=== PATIENT | male | born 1975 | race Caucasian/White ===

== ENCOUNTER 2017-11-01 15:23 | Emergency (ER) | payer OTHER ==
--- NOTE | 2017-11-01 16:11 | EDM.PDOC ---
ED HPI GENERAL MEDICAL PROBLEM - General Chief Complaint: Respiratory Problem Stated Complaint: COUGH, FEVER Time Seen by Provider: 11/01/17 16:10 Source of Information: Reports: Patient - History of Present Illness INITIAL COMMENTS - FREE TEXT/NARRATIVE: HISTORY AND PHYSICAL: History of present illness: [Patient complains of cough and intermittent fever some myalgias no nausea vomiting chills sweats no chest pain shortness breath headache dizziness palpitation about a urine symptoms symptoms increasing over last 3 days ] Review of systems: As per history of present illness and below otherwise all systems reviewed and negative. Past medical history: As per history of present illness and as reviewed below otherwise noncontributory. Surgical history: As per history of present illness and as reviewed below otherwise noncontributory. Social history: No reported history of drug or alcohol abuse. Family history: As per history of present illness and as reviewed below otherwise noncontributory. Physical exam: HEENT: Atraumatic, normocephalic, pupils reactive, negative for conjunctival pallor or scleral icterus, mucous membranes moist, throat clear, neck supple, nontender, trachea midline. Lungs: Clear to auscultation, breath sounds equal bilaterally, chest nontender. Heart: S1S2, regular, negative for clicks, rubs, or JVD. Abdomen: Soft, nondistended, nontender. Negative for masses or hepatosplenomegaly. Negative for costovertebral tenderness. Pelvis: Stable nontender. Genitourinary: Deferred. Rectal: Deferred. Extremities: Atraumatic, negative for cords or calf pain. Neurovascular unremarkable. Neuro: Awake, alert, oriented. Cranial nerves II through XII unremarkable. Cerebellum unremarkable. Motor and sensory unremarkable throughout. Exam nonfocal. Diagnostics: []Influenza Chest 2 views Therapeutics: [Z-Anish HFA Phenergan with codeine ] Impression: [Acute bronchitis Slight infiltrate on chest x-ray will follow radiology] Definitive disposition and diagnosis as appropriate pending reevaluation and review of above. generalized body aches Pain Score (Numeric/FACES): 4 - Related Data Allergies Allergy/AdvReac Type Severity Reaction Status Date / Time No Known Allergies Allergy Verified 11/01/17 15:32 Home Meds: Home Meds . [No Known Home Meds] 11/01/17 [History] Past Medical History - Past Health History Medical/Surgical History: Denies Medical/Surgical History - Infectious Disease History Infectious Disease History: Reports: Chicken Pox Social & Family History - Family History Family Medical History: Noncontributory - Tobacco Use Smoking Status *Q: Never Smoker Second Hand Smoke Exposure: No - Caffeine Use Caffeine Use: Reports: Coffee, Tea - Alcohol Use Days Per Week of Alcohol Use: 4 Number of Drinks Per Day: 2 Total Drinks Per Week: 8 - Recreational Drug Use Recreational Drug Use: No ED ROS GENERAL - Review of Systems Review Of Systems: ROS reveals no pertinent complaints other than HPI. ED EXAM, GENERAL - Physical Exam Exam: See Below Course - Vital Signs Last Recorded V/S: Last Vital Signs Temp 98.5 F 11/01/17 15:28 Pulse 103 H 11/01/17 15:28 Resp 18 11/01/17 15:28 BP 174/118 H 11/01/17 15:28 Pulse Ox 95 11/01/17 15:28 - Orders/Labs/Meds Orders: Active Orders 24 hr Category Date Time Status Chest 2V [CR] Stat Exams 11/01/17 15:33 Taken Departure - Departure Time of Disposition: 16:47 Disposition: Home, Self-Care 01 Condition: Good Clinical Impression: Acute bronchitis - Discharge Information Referrals: PCP,None [Primary Care Provider] - Forms: ED Department Discharge Additional Instructions: Medication as prescribed Return if symptoms persist or worsen Follow-up with primary care in 2 weeks sooner as needed The following information is given to patients seen in the emergency department who are being discharged to home. This information is to outline your options for follow-up care. We provide all patients seen in our emergency department with a follow-up referral. The need for follow-up, as well as the timing and circumstances, are variable depending upon the specifics of your emergency department visit. If you don't have a primary care physician on staff, we will provide you with a referral. We always advise you to contact your personal physician following an emergency department visit to inform them of the circumstance of the visit and for follow-up with them and/or the need for any referrals to a consulting specialist. The emergency department will also refer you to a specialist when appropriate. This referral assures that you have the opportunity for follow-up care with a specialist. All of these measure are taken in an effort to provide you with optimal care, which includes your follow-up. Under all circumstances we always encourage you to contact your private physician who remains a resource for coordinating your care. When calling for follow-up care, please make the office aware that this follow-up is from your recent emergency room visit. If for any reason you are refused follow-up, please contact the [facility] emergency department at and asked to speak to the emergency department charge nurse. - My Orders Last 24 Hours: My Active Orders 11/01/17 15:33 Chest 2V [CR] Stat - Assessment/Plan Last 24 Hours: My Active Orders 11/01/17 15:33 Chest 2V [CR] Stat
--- NOTE | 2017-11-03 17:59 | CR ---
EXAM DATE: 11/01/17 PATIENT'S AGE: 42 Patient: MUNIRA AUSTIN Facility: [place], [place] Site . Site : 1975 Study: XRay Chest [id number]/20/2018 4:33:39 PM Ordering Physician: Senait Jensen Final Report: INDICATION: Cough for 2 days, negative influenza TECHNIQUE: Chest radiograph 2 views COMPARISON: None FINDINGS: Mediastinum: The heart silhouette is normal in size and morphology. The mediastinum is normal in appearance. Mild elevation of the right hemidiaphragm noted. Lungs: Both lungs are unremarkable in appearance. No sign of pleural effusion seen. No pneumothorax is identified. Bones and soft tissue: Unremarkable for age. IMPRESSION: 1. No acute cardiopulmonary disease is seen. Dictated by: Anival Hoskins MD @ 11/01/2017 16:34:39 (Electronic Signature) Report Signed by Proxy. AMBER
== END 2017-11-01 16:59 | disposition home or self-care (01) ==
LOC: MW.ED 15:23
DX: J20.9 Acute bronchitis, unspecified (principal)
CPT/HCPCS: 71046; 71046-26; 87804; 99283

== ENCOUNTER 2021-08-09 08:13 | Inpatient (IN) | payer BC, OTHER ==
[2021-08-09] MEDS ORDERED: Sodium Chloride 0.9% 10 ML Syringe FLUSH PRN (09:48)
[2021-08-09] MEDS ORDERED: Sodium Chloride 0.9% 2.5 ML Syringe FLUSH PRN (09:48)
[2021-08-09] MEDS ORDERED: Sodium Chloride 0.9% 1,000 ML IV ONE ×2 (09:51→11:29)
--- NOTE | 2021-08-09 09:58 | EDM.PDOC ---
<Teresa Acuna E - Last Filed: 08/09/21 12:12> ED HPI GENERAL MEDICAL PROBLEM - General Chief Complaint: Cardiovascular Problem Stated Complaint: HEART RATE ISSUES Time Seen by Provider: 08/09/21 09:42 Source of Information: Reports: Patient History Limitations: Reports: No Limitations - History of Present Illness INITIAL COMMENTS - FREE TEXT/NARRATIVE: HISTORY AND PHYSICAL: History of present illness: Patient is a 45-year-old male who presents to the emergency room stating his pulse has been elevated since 7 AM this morning. He has noticed palpitations and shortness of breath. He denies having any chest pain although states his chest "feels tight". His watch informed him his heart rate was 160s. He states he does have a history of high blood pressure although hasn't wanted to be placed on medication. He has been doing weight watchers, has recently lost 30 pounds in attempt to manage his blood pressure without medication. Hasn't checked his blood pressure in months. Patient denies any fever, chills, headache, change in vision, syncope or near syncope. Denies any back pain or cough. Denies any abdominal pain, nausea, vomiting, diarrhea, constipation or dysuria. Has not noted any blood in urine or stool. Patient has been eating and drinking appropriately. No recent travel or sick contacts. Review of systems: As per history of present illness and below otherwise all systems reviewed and negative. Past medical history: As per history of present illness and as reviewed below otherwise noncontributory. Surgical history: As per history of present illness and as reviewed below otherwise noncontributory. Social history: See social history for further information Family history: As per history of present illness and as reviewed below otherwise noncontributory. Physical exam: General: Well developed and well nourished 45 year old male. Alert and orientated x 3. Nontoxic in appearance and in no acute distress. Vital signs are stable and have been reviewed by me. Nursing notes were reviewed. HEENT: Atraumatic, normocephalic, pupils equal and reactive bilaterally, negative for conjunctival pallor or scleral icterus, mucous membranes moist, TMs normal bilaterally, throat clear, neck supple, nontender, trachea midline. No drooling or trismus noted. No meningeal signs. No hot potato voice noted. Lungs: Clear to auscultation bilaterally. No wheezes, rales, or rhonchi. Chest nontender. Normal work of breathing, no accessory muscles used. Heart: Tachycardic with a rate of 150s. No peripheral edema Abdomen: Soft, nondistended, nontender. Normoactive bowel sounds. Negative for masses or costovertebral tenderness. Skin: Intact, warm, dry. No lesions or rashes noted. Hematologic: No petechiae or purpra. Mucosa appropriate color and normal nail bed color and refill. Extremities: Atraumatic, moves all extremities per self without difficulty or deficits, negative for cords or calf pain. Neurovascular unremarkable. Neuro: Awake, alert, oriented. Cranial nerves II through XII unremarkable. Cerebellum unremarkable. Motor and sensory unremarkable throughout. Exam nonfocal. Psychiatric: Mood and affect are appropriate. Normal thought process. Answering questions appropriately. Please note that the patient was seen and evaluated during the 2019 SARS-CoV-2 novel coronavirus pandemic period. Community viral transmission is ongoing at time of this encounter and the emergency department is operating under pandemic response procedures. Medical Decision Making: Patient is a 45-year-old male who presents to the emergency room with his with concerns of tachycardia, palpitation and chest tightness since 0700 today. He went to bed feeling fine, asymptomatic. He states he has noticed symptoms like this in the past, but typically last a few minutes and resolves on its own. Has never seen a provider for this. He states he has had high blood pressure in the past, but wanted to try to loose some weight before taking any medications. Doesn't know what his blood pressure has been running, hasn't checked in a few months. Physical exam is unremarkable with the exception of tachycardia with rate of 140-160's, irregular. Will do cardiac workup with the likely intent of admission. EKG shows Afib with RVR, rate of 166. Symptomatic. [id number] Score: 1 point (untreated HTN). Lab work is essentially unremarkable. Chest x-ray is unremarkable. Patient has received diltiazem IV and orally with a rate staying at 1 teens to 130s. We will give a second dose of diltiazem and continue to monitor. Dr Milelr was directly involved in this case. I have talked with the patient about today's findings, in addition to providing specific details for plan of care. Reassessment at the time of disposition demonstrates that the patient is in no acute distress. Dr Hutchins was consulted on this case and is agreeable to keeping patient for further care. Patient will be admitted to the ICU for rate management, diltiazem drip. Patient continues to have a heart rate of 105-125. He offers no current complaints or concerns and his blood pressure is within normal limits. Diagnostics: CBC, CMP, Troponin, EKG, CXR, COVID, TSH Therapeutics: IV fluids, Zofran, Diltiazem x 2, Diltiazem drip, Cardizem CD Impression: New onset A.Fib with RVR Plan: ICU admission Definitive disposition and diagnosis as appropriate pending reevaluation and review of above. - Related Data Allergies Allergy/AdvReac Type Severity Reaction Status Date / Time No Known Allergies Allergy Verified 08/09/21 15:33 Home Meds: Home Meds . [No Known Home Meds] 11/01/17 [History] Past Medical History - Past Health History Medical/Surgical History: Denies Medical/Surgical History - Infectious Disease History Infectious Disease History: Reports: Chicken Pox Social & Family History - Family History Family Medical History: No Pertinent Family History - Caffeine Use Caffeine Use: Reports: Coffee, Tea ED ROS GENERAL - Review of Systems Review Of Systems: Comprehensive ROS is negative, except as noted in HPI. ED EXAM, GENERAL - Physical Exam Exam: See Below (See dictation) Departure - Departure Time of Disposition: 12:13 Disposition: Admitted As Inpatient 65 Clinical Impression: Atrial fibrillation with RVR Sepsis Event Note (ED) - Evaluation Sepsis Screening Result: No Definite Risk <Justin Miller - Last Filed: 08/10/21 13:50> ED ROS GENERAL - Review of Systems Review Of Systems: Comprehensive ROS is negative, except as noted in HPI. Course - Vital Signs Text/Narrative:: 12:09 Angela Wilhelm help comanage this patient. Patient came in with A. fib RVR. Tubules doses of IV diltiazem and 120 of Cardizem long-acting. Patient still with heart rates in the 130s intermittently. Dilt drip started. Otherwise admission ICU dill drip continued management and work-up Last Recorded V/S: Last Vital Signs Temp 36.7 C 08/10/21 13:00 Pulse 139 H 08/09/21 14:25 Resp 19 08/10/21 13:00 BP 126/88 08/10/21 13:00 Pulse Ox 94 L 08/10/21 13:00 - Orders/Labs/Meds Orders: Medication Orders Enoxaparin Sodium (Enoxaparin 40 Mg/0.4 Ml Syringe) 40 mg SUBCUT Q24H [facility] Last Admin: 08/09/21 15:44 Dose: 40 mg Documented by: SLAVA Lactated Ringer's (Ringers, Lactated) 1,000 mls @ 125 mls/hr IV Q8H BING Last Admin: 08/10/21 08:47 Dose: 125 mls/hr Documented by: Infusion: 08/10/21 08:47 Dose: 125 mls/hr Documented by: Admin: 08/10/21 00:47 Dose: 125 mls/hr Documented by: Infusion: 08/10/21 00:47 Dose: 125 mls/hr Documented by: Admin: 08/09/21 17:15 Dose: 125 mls/hr Documented by: SLAVA Pantoprazole Sodium 40 mg/ (Sodium Chloride) 10 mls @ 300 mls/hr IV DAILY BING Last Admin: 08/10/21 09:34 Dose: 300 mls/hr Documented by: SANJIV Diltiazem HCl 100 mg/ Sodium (Chloride) 100 mls @ 5 mls/hr IV NOW [facility]; Protocol Last Admin: 08/10/21 04:52 Dose: 5 mg/hr, 5 mls/hr Documented by: JARRELL Ondansetron HCl (Ondansetron 4 Mg/2 Ml Sdv) 4 mg IVPUSH Q4H PRN PRN Reason: Nausea/Vomiting Last Admin: 08/09/21 17:32 Dose: 4 mg Documented by: SLAVA Sodium Chloride (Sodium Chloride 0.9% 10 Ml Syringe) 10 ml FLUSH ASDIRECTED PRN PRN Reason: Keep Vein Open Last Admin: 08/09/21 10:25 Dose: 10 ml Documented by: BIRGIT Sodium Chloride (Sodium Chloride 0.9% 2.5 Ml Syringe) 2.5 ml FLUSH ASDIRECTED PRN PRN Reason: Keep Vein Open Last Admin: 08/09/21 10:25 Dose: 2.5 ml Documented by: BIRGIT Labs: Laboratory Tests 1008/09/21 08/09/21 Range/Units 10:00 10:00 10:30 WBC 6.93 (4.0-11.0) K/uL RBC 5.30 (4.50-5.90) M/uL Hgb 17.3 H (13.0-17.0) g/dL Hct 48.0 (38.0-50.0) % MCV 90.6 (80.0-98.0) fL MCH 32.6 H (27.0-32.0) pg MCHC 36.0 (31.0-37.0) g/dL RDW Std Deviation 42.7 (28.0-62.0) fl RDW Coeff of Kevin 13 (11.0-15.0) % Plt Count 173 (150-400) K/uL MPV 9.50 (7.40-12.00) fL Neut % (Auto) 69.0 (48.0-80.0) % Lymph % (Auto) 20.1 (16.0-40.0) % [place] % (Auto) 9.1 (0.0-15.0) % Eos % (Auto) 1.4 (0.0-7.0) % Baso % (Auto) 0.4 (0.0-1.5) % Neut # (Auto) 4.8 (1.4-5.7) K/uL Lymph # (Auto) 1.4 (0.6-2.4) K/uL [place] # (Auto) 0.6 (0.0-0.8) K/uL Eos # (Auto) 0.1 (0.0-0.7) K/uL Baso # (Auto) 0.0 (0.0-0.1) K/uL Nucleated RBC % 0.0 /100WBC Nucleated RBCs # 0 K/uL Sodium 138 (136-148) mmol/L Potassium 4.2 (3.5-5.1) mmol/L Chloride 100 (98-107) mmol/L Carbon Dioxide 27.4 (21.0-32.0) mmol/L BUN 11 (7.0-18.0) mg/dL Creatinine 1.0 (0.8-1.3) mg/dL Est Cr Clr Drug Dosing 107.32 mL/min Estimated GFR (MDRD) > 60.0 ml/min Glucose 133 H (74-106) mg/dL Calcium 9.6 (8.5-10.1) mg/dL Total Bilirubin 0.5 (0.2-1.0) mg/dL AST 37 (15-37) IU/L ALT 87 H (14-63) IU/L Alkaline Phosphatase 62 (46-116) U/L Troponin I < 0.050 (0.000-0.056) ng/mL Total Protein 8.0 (6.4-8.2) g/dL Albumin 4.0 (3.4-5.0) g/dL Globulin 4.0 (2.6-4.0) g/dL Albumin/Globulin Ratio 1.0 (0.9-1.6) TSH, Ultra Sensitive 1.45 (0.36-3.74) uIU/mL SARS-CoV-2 RNA (LEXIS) NEGATIVE (NEGATIVE) Meds: Medications Generic Name Dose Route Start Last Admin Trade Name Freq PRN Reason Stop Dose Admin Enoxaparin Sodium 40 mg 08/09/21 15:30 08/09/21 15:44 Enoxaparin 40 Mg/0.4 Ml Syringe SUBCUT 40 mg Q24H BING Administration Lactated Ringer's 1,000 mls @ 125 mls/hr 08/09/21 16:30 08/10/21 08:47 Ringers, Lactated IV 125 mls/hr Q8H BING Administration Pantoprazole Sodium 40 mg/ 10 mls @ 300 mls/hr 08/10/21 09:00 08/10/21 09:34 Sodium Chloride IV 300 mls/hr DAILY BING Administration Diltiazem HCl 100 mg/ Sodium 100 mls @ 5 mls/hr 08/09/21 20:00 08/10/21 04:52 Chloride IV 5 mg/hr NOW BING 5 mls/hr Administration Protocol 5 MG/HR Ondansetron HCl 4 mg 08/09/21 15:30 08/09/21 17:32 Ondansetron 4 Mg/2 Ml Sdv IVPUSH 4 mg Q4H PRN Administration Nausea/Vomiting Sodium Chloride 10 ml 08/09/21 09:48 08/09/21 10:25 Sodium Chloride 0.9% 10 Ml Syringe FLUSH 10 ml ASDIRECTED PRN Administration Keep Vein Open Sodium Chloride 2.5 ml 08/09/21 09:48 08/09/21 10:25 Sodium Chloride 0.9% 2.5 Ml Syringe FLUSH 2.5 ml ASDIRECTED PRN Administration Keep Vein Open Discontinued Medications Generic Name Dose Route Start Last Admin Trade Name Freq PRN Reason Stop Dose Admin Aspirin 324 mg 08/09/21 09:59 08/09/21 10:12 Aspirin 81 Mg Tab.Chew PO 08/09/21 10:00 324 mg ONETIME ONE Administration Diltiazem HCl 10 mg 08/09/21 10:11 08/09/21 10:21 Diltiazem 25 Mg/5 Ml Sdv IVPUSH 08/09/21 10:12 10 mg ONETIME ONE Administration Diltiazem HCl 120 mg 08/09/21 11:15 08/09/21 12:04 Diltiazem 120 Mg Cap.Cd PO 08/09/21 11:16 Not Given ONETIME ONE Diltiazem HCl 10 mg 08/09/21 11:29 08/09/21 11:46 Diltiazem 25 Mg/5 Ml Sdv IVPUSH 08/09/21 11:30 10 mg ONETIME ONE Administration Sodium Chloride 1,000 mls @ 999 mls/hr 08/09/21 09:51 08/09/21 10:11 Normal Saline IV 08/09/21 10:51 999 mls/hr STAT ONE Administration Sodium Chloride 1,000 mls @ 125 mls/hr 08/09/21 11:29 08/09/21 11:46 Normal Saline IV 08/09/21 19:28 125 mls/hr STAT ONE Administration Diltiazem HCl 100 mg/ Sodium 100 mls @ 3 mls/hr 08/09/21 12:15 08/10/21 04:52 Chloride IV 0 mg/hr NOW BING 0 mls/hr Titration Protocol 3 MG/HR Lactated Ringer's 1,000 mls @ 999 mls/hr 08/09/21 15:30 08/09/21 16:00 Ringers, Lactated IV 08/09/21 16:30 999 mls/hr BOLUS ONE Administration Ondansetron HCl 4 mg 08/09/21 11:07 08/09/21 11:10 Ondansetron 4 Mg/2 Ml Sdv IVPUSH 08/09/21 11:08 4 mg ONETIME ONE Administration
[2021-08-09] MEDS ORDERED: Aspirin 81 MG Tab.Chew PO ONE (09:59)
[2021-08-09] MEDS ORDERED: Diltiazem 25 MG/5 ML SDV IVPUSH ONE ×2 (10:11→11:29)
--- NOTE | 2021-08-09 10:20 | PCM.EKG ---
#1 Interpretation Time: 10:20 EKG Interpretation Comments: 166, A. fib with RVR, nonspecific ST/T findings
[2021-08-09] MEDS ORDERED: Diltiazem 120 MG Cap.CD PO ONE ×2 (10:32→11:15)
[2021-08-09 10:52] LABS: BLOOD UREA NITROGEN,BUN 11 mg/dL (7.0-18.0); CARBON DIOXIDE,CO2 27.4 mmol/L (21.0-32.0); CHLORIDE,CL 100 mmol/L (98-107); GLUCOSE RANDOM 133 mg/dL (74-106); POTASSIUM,K 4.2 mmol/L (3.5-5.1); SODIUM,NA 138 mmol/L (136-148)
[2021-08-09] MEDS ORDERED: Ondansetron 4 MG/2 ML SDV IVPUSH ONE (11:07)
--- NOTE | 2021-08-09 11:27 | CR ---
INDICATION: SOB TECHNIQUE: Chest 1 view. COMPARISON: 11/01/17 FINDINGS: Cardiovascular and mediastinum: Heart size and vasculature are normal in caliber and appearance. Mediastinum is within normal limits. Lungs and pleural space: Lungs are clear. No sign of infiltrate or mass. No sign of pleural effusion. No pneumothorax. Bones and soft tissues: No significant findings. IMPRESSION: Unremarkable chest. Dictated by: Emory Wolfe MD @ 08/09/2021 11:26:08 (Electronically Signed)
[2021-08-09] MEDS ORDERED: Diltiazem 100 MG in Sodium Chloride 0.9% 100 ML IV SCH ×2 (12:15→20:00)
[2021-08-09] MEDS ORDERED: Ondansetron 4 MG/2 ML SDV IVPUSH PRN (15:30)
[2021-08-09] MEDS ORDERED: Lactated Ringers 1,000 ML IV ONE (15:30)
[2021-08-09] MEDS: Enoxaparin 40 MG/0.4 ML Syringe SUBCUT SCH (15:44)
[2021-08-09] MEDS: Lactated Ringers 1,000 ML IV SCH (17:15)
--- NOTE | 2021-08-09 21:21 | PCM.HP.2 ---
<Red Looney - Last Filed: 08/09/21 22:23> H&P History of Present Illness - General Date of Service: 08/09/21 Admit Problem/Dx: Admission Diagnosis/Problem Admission Diagnosis/Problem Atrial fibrillation - History of Present Illness Initial Comments - Free Text/Narative: 45-year-old male with history of untreated hypertension presented to the ER complaining of elevated pulse since waking up this morning at 7 AM. Patient has had palpitations and associated shortness of breath but denies chest pain. Patient smart watch is giving him a pulse reading of 160s. Patient denies similar episodes in the past. Prior to this he was asymptomatic. Patient does have a family history of atrial fibrillation and multiple relatives. Patient is aware he has hypertension but has refused to be started on treatment. Patient has been dieting and lost 30 pounds recently with a goal of improving his blood pressure. Patient does not monitor BP. Patient states he did have some chest tightness upon awakening which is since resolved. Patient denies chest pain, radiation, difficulty breathing, shortness of breath, lightheadedness, dizziness, loss of consciousness, changes in vision, fever or chills. No abdominal pain, nausea, vomiting or diarrhea. Patient is a daily alcohol user. ER course: Patient presented with tachycardia, no acute distress. Heart rate 140s to 160s. EKG shows atrial fibrillation with RVR, rate of 166. [id number] VASc Score: 1 point (untreated HTN). Physical exam unremarkable. WBC 6.93. Hgb 17.3. Platelet count 173. Sodium 138. Potassium 4.2. Chloride 100. Bicarbonate 27.4. BUN 11. Creatinine 1.0. Glucose 133. Troponin negative x2. TSH 1.45. SARS-CoV-2 negative. Chest x-ray is unremarkable. Patient has received diltiazem IV and orally with a rate staying at 110 to 130s. Patient admitted to ICU diltiazem drip. Heart rate 100-125. Patient will be admitted to the ICU for rate management, diltiazem drip. CODE STATUS: Full code. - Related Data Allergies/Adverse Reactions: Allergies Allergy/AdvReac Type Severity Reaction Status Date / Time No Known Allergies Allergy Verified 08/09/21 15:33 Home Medications: Home Meds Apixaban [Eliquis] 5 mg PO BID #60 tablet 08/11/21 [Rx] Metoprolol Succinate 100 mg PO DAILY #30 tab.er.24h 08/11/21 [Rx] Past Medical History - Past Health History Medical/Surgical History: Denies Medical/Surgical History HEENT History: Reports: None Cardiovascular History: Reports: Hypertension Respiratory History: Reports: None Gastrointestinal History: Reports: None Genitourinary History: Reports: None Musculoskeletal History: Reports: None Neurological History: Reports: None Psychiatric History: Reports: None Endocrine/Metabolic History: Reports: None Hematologic History: Reports: None Immunologic History: Reports: None Oncologic (Cancer) History: Reports: None Dermatologic History: Reports: None - Infectious Disease History Infectious Disease History: Reports: Chicken Pox - Past Surgical History Head Surgeries/Procedures: Reports: None HEENT Surgical History: Reports: None Cardiovascular Surgical History: Reports: None Respiratory Surgical History: Reports: None GI Surgical History: Reports: None Male Surgical History: Reports: None Endocrine Surgical History: Reports: None Neurological Surgical History: Reports: None Musculoskeletal Surgical History: Reports: None Oncologic Surgical History: Reports: None Dermatological Surgical History: Reports: None Social & Family History - Family History Family Medical History: No Pertinent Family History - Tobacco Use Tobacco Use Status *Q: Never Tobacco User Second Hand Smoke Exposure: No - Caffeine Use Caffeine Use: Reports: Coffee - Alcohol Use Days Per Week of Alcohol Use: 7 Number of Drinks Per Day: 1 Total Drinks Per Week: 7 Date of Last Drink: 08/08/21 - Recreational Drug Use Recreational Drug Use: No H&P Review of Systems - Review of Systems: Review Of Systems: See Below General: Reports: Weight Loss. Denies: Fever, Chills HEENT: Denies: Headaches, Hearing Changes, Vertigo, Visual Changes Pulmonary: Reports: Shortness of Breath. Denies: Wheezing, Sputum, Hemoptysis Cardiovascular: Reports: Palpitations, Blood Pressure Problem. Denies: Chest Pain, Dyspnea on Exertion, Edema, Lightheadedness, Syncope Gastrointestinal: Denies: Abdominal Pain, Anorexia, Black Stool, Constipation, Diarrhea, Nausea, Vomiting Genitourinary: Denies: Dysuria Musculoskeletal: Denies: Neck Pain, Shoulder Pain, Arm Pain, Back Pain, Hand Pain, Leg Pain Skin: Denies: Cyanosis, Pallor, Diaphoresis Psychiatric: Denies: Confusion Neurological: Denies: Confusion, Dizziness, Headache, Numbness, Paresthesia, Seizure, Syncope, Tingling, Difficulty Walking, Weakness, Change in Speech Exam - Exam Exam: See Below - Vital Signs Vital Signs: Last Vital Signs Temp 97.7 F 08/09/21 20:00 Pulse 139 H 08/09/21 14:25 Resp 17 08/09/21 21:00 BP 128/87 08/09/21 21:00 Pulse Ox 97 08/09/21 21:00 Weight: 121.761 kg - Exam General: Alert, Oriented, 4 HEENT: Conjunctiva Clear, EACs Clear, EOMI, Hearing Intact Neck: Supple, Trachea Midline, 2 Lungs: Clear to Auscultation, Normal Respiratory Effort Cardiovascular: Irregular Rhythm, Tachycardia GI/Abdominal Exam: Normal Bowel Sounds, Soft, Non-Tender, No Distention, No Abnormal Bruit Back Exam: Normal Inspection, Full Range of Motion, NT Extremities: Normal Inspection, Normal Range of Motion, Non-Tender, No Pedal Edema, Normal Capillary Refill Peripheral Pulses: 2+: Dorsalis Pedis (L), Dorsalis Pedis (R) Skin: Warm, Dry, Intact Neurological: Cranial Nerves Intact Neuro Extensive - Mental Status: Alert, Oriented x3, Normal Mood/Affect, Normal Cognition Neuro Extensive - Motor, Sensory, Reflexes: CN II-XII Intact, Normal Gait, Normal Reflexes Psychiatric: Alert, Normal Affect, Normal Mood - Patient Data Lab Results Last 24 hrs: Laboratory Results - last 24 hr 08/09/21 08/09/21 08/09/21 Range/Units 10:00 10:00 10:30 WBC 6.93 (4.0-11.0) K/uL RBC 5.30 (4.50-5.90) M/uL Hgb 17.3 H (13.0-17.0) g/dL Hct 48.0 (38.0-50.0) % MCV 90.6 (80.0-98.0) fL MCH 32.6 H (27.0-32.0) pg MCHC 36.0 (31.0-37.0) g/dL RDW Std Deviation 42.7 (28.0-62.0) fl RDW Coeff of Kevin 13 (11.0-15.0) % Plt Count 173 (150-400) K/uL MPV 9.50 (7.40-12.00) fL Neut % (Auto) 69.0 (48.0-80.0) % Lymph % (Auto) 20.1 (16.0-40.0) % [place] % (Auto) 9.1 (0.0-15.0) % Eos % (Auto) 1.4 (0.0-7.0) % Baso % (Auto) 0.4 (0.0-1.5) % Neut # (Auto) 4.8 (1.4-5.7) K/uL Lymph # (Auto) 1.4 (0.6-2.4) K/uL [place] # (Auto) 0.6 (0.0-0.8) K/uL Eos # (Auto) 0.1 (0.0-0.7) K/uL Baso # (Auto) 0.0 (0.0-0.1) K/uL Nucleated RBC % 0.0 /100WBC Nucleated RBCs # 0 K/uL Sodium 138 (136-148) mmol/L Potassium 4.2 (3.5-5.1) mmol/L Chloride 100 (98-107) mmol/L Carbon Dioxide 27.4 (21.0-32.0) mmol/L BUN 11 (7.0-18.0) mg/dL Creatinine 1.0 (0.8-1.3) mg/dL Est Cr Clr Drug Dosing 107.32 mL/min Estimated GFR (MDRD) > 60.0 ml/min Glucose 133 H (74-106) mg/dL Calcium 9.6 (8.5-10.1) mg/dL Total Bilirubin 0.5 (0.2-1.0) mg/dL AST 37 (15-37) IU/L ALT 87 H (14-63) IU/L Alkaline Phosphatase 62 (46-116) U/L Troponin I < 0.050 (0.000-0.056) ng/mL Total Protein 8.0 (6.4-8.2) g/dL Albumin 4.0 (3.4-5.0) g/dL Globulin 4.0 (2.6-4.0) g/dL Albumin/Globulin Ratio 1.0 (0.9-1.6) TSH, Ultra Sensitive 1.45 (0.36-3.74) uIU/mL SARS-CoV-2 RNA ([facility]) NEGATIVE (NEGATIVE) 08/09/21 Range/Units 16:02 WBC (4.0-11.0) K/uL RBC (4.50-5.90) M/uL Hgb (13.0-17.0) g/dL Hct (38.0-50.0) % MCV (80.0-98.0) fL MCH (27.0-32.0) pg MCHC (31.0-37.0) g/dL RDW Std Deviation (28.0-62.0) fl RDW Coeff of Kevin (11.0-15.0) % Plt Count (150-400) K/uL MPV (7.40-12.00) fL Neut % (Auto) (48.0-80.0) % Lymph % (Auto) (16.0-40.0) % [place] % (Auto) (0.0-15.0) % Eos % (Auto) (0.0-7.0) % Baso % (Auto) (0.0-1.5) % Neut # (Auto) (1.4-5.7) K/uL Lymph # (Auto) (0.6-2.4) K/uL [place] # (Auto) (0.0-0.8) K/uL Eos # (Auto) (0.0-0.7) K/uL Baso # (Auto) (0.0-0.1) K/uL Nucleated RBC % /100WBC Nucleated RBCs # K/uL Sodium (136-148) mmol/L Potassium (3.5-5.1) mmol/L Chloride (98-107) mmol/L Carbon Dioxide (21.0-32.0) mmol/L BUN (7.0-18.0) mg/dL Creatinine (0.8-1.3) mg/dL Est Cr Clr Drug Dosing mL/min Estimated GFR (MDRD) ml/min Glucose (74-106) mg/dL Calcium (8.5-10.1) mg/dL Total Bilirubin (0.2-1.0) mg/dL AST (15-37) IU/L ALT (14-63) IU/L Alkaline Phosphatase (46-116) U/L Troponin I < 0.050 (0.000-0.056) ng/mL Total Protein (6.4-8.2) g/dL Albumin (3.4-5.0) g/dL Globulin (2.6-4.0) g/dL Albumin/Globulin Ratio (0.9-1.6) TSH, Ultra Sensitive (0.36-3.74) uIU/mL SARS-CoV-2 RNA ([facility]) (NEGATIVE) Result Diagrams: 08/09/21 10:00 08/09/21 10:00 Sepsis Event Note - Evaluation Sepsis Screening Result: No Definite Risk - Focused Exam Vital Signs: Vital Signs Temp Temp Pulse Pulse Resp BP BP 08/09/21 21:00 17 128/87 08/09/21 20:00 97.7 F 16 135/90 08/09/21 19:00 16 129/92 H 08/09/21 18:00 19 134/95 H 08/09/21 17:00 17 138/84 08/09/21 16:00 17 119/82 08/09/21 15:27 08/09/21 15:00 97.2 F 24 H 132/96 H 08/09/21 14:25 139 H 132/78 08/09/21 13:36 115 H 116/74 08/09/21 13:00 111 H 122/84 08/09/21 12:24 117 H 111/87 08/09/21 11:51 105 H 16 114/89 08/09/21 11:35 124 H 16 130/98 H 08/09/21 11:09 135 H 130/99 H 08/09/21 10:57 98.1 F 126 H 16 139/104 H 08/09/21 10:26 152 H 17 142/88 H 08/09/21 09:53 97.6 F 151 H 19 143/113 H Pulse Ox Pulse Ox 08/09/21 21:00 97 08/09/21 20:00 96 08/09/21 19:00 95 08/09/21 18:00 96 08/09/21 17:00 95 08/09/21 16:00 96 08/09/21 15:27 96 08/09/21 15:00 97 08/09/21 14:25 08/09/21 13:36 99 08/09/21 13:00 99 08/09/21 12:24 98 08/09/21 11:51 98 08/09/21 11:35 98 08/09/21 11:09 08/09/21 10:57 98 08/09/21 10:26 96 08/09/21 09:53 98 - Problem List (1) Atrial fibrillation with RVR SNOMED Code(s): 863824506932308 ICD Code: I48.91 - UNSPECIFIED ATRIAL FIBRILLATION Status: Acute Problem List Initiated/Reviewed/Updated: Yes Orders Last 24hrs: Active Orders 24 hr Category Date Time Status Admission Status [Patient Status] [ADT] Stat ADT 08/09/21 12:08 Active Patient Status [ADT] Routine ADT 08/09/21 14:45 Active Ambulate [RC] ASDIRECTED Care 08/09/21 15:27 Active Antiembolic Devices [RC] PER UNIT ROUTINE Care 08/09/21 15:28 Active Oxygen Therapy [RC] PRN Care 08/09/21 15:27 Active VTE/DVT Education [RC] PER UNIT ROUTINE Care 08/09/21 15:27 Active Vital Signs [RC] Q1H Care 08/09/21 15:27 Active Heart Healthy Diet [DIET] Diet 08/09/21 Dinner Active Echo Comp wo Cont [US] Routine Exams 08/09/21 15:38 Ordered BMP [BASIC METABOLIC PANEL,BMP] [CHEM] AM Lab 08/10/21 05:11 Ordered CBC WITH AUTO DIFF [HEME] AM Lab 08/10/21 05:11 Ordered MAGNESIUM [CHEM] AM Lab 08/10/21 05:11 Ordered PHOSPHORUS [CHEM] AM Lab 08/10/21 05:11 Ordered Diltiazem [Cardizem] 100 mg Med 08/09/21 12:15 Active Sodium Chloride 0.9% [Normal Saline AdvBag] 100 ml IV NOW Enoxaparin [Lovenox] Med 08/09/21 15:30 Active 40 mg SUBCUT Q24H Lactated Ringers [Ringers, Lactated] 1,000 ml Med 08/09/21 16:30 Active IV Q8H Ondansetron [Zofran] Med 08/09/21 15:30 Active 4 mg IVPUSH Q4H PRN Pantoprazole [ProTONIX IV] 40 mg Med 08/10/21 09:00 Active Sodium Chloride 0.9% [Normal Saline] 10 ml IV DAILY Sodium Chloride 0.9% [Saline Flush] Med 08/09/21 09:48 Active 10 ml FLUSH ASDIRECTED PRN Sodium Chloride 0.9% [Saline Flush] Med 08/09/21 09:48 Active 2.5 ml FLUSH ASDIRECTED PRN Saline Lock Insert [OM.PC] Stat Oth 08/09/21 09:48 Ordered Sequential Compression Device [OM.PC] Per Unit Routine Oth 08/09/21 15:27 Ordered Resuscitation Status Routine Resus Stat 08/09/21 15:27 Ordered Medication Orders Enoxaparin Sodium (Enoxaparin 40 Mg/0.4 Ml Syringe) 40 mg SUBCUT Q24H BING Last Admin: 08/09/21 15:44 Dose: 40 mg Documented by: SLAVA Diltiazem HCl 100 mg/ Sodium (Chloride) 100 mls @ 3 mls/hr IV NOW BING; Protocol Last Titration: 08/09/21 17:38 Dose: 5 mg/hr, 5 mls/hr Documented by: Titration: 08/09/21 15:28 Dose: 10 mg/hr, 10 mls/hr Documented by: Titration: 08/09/21 13:40 Dose: 6 mg/hr, 6 mls/hr Documented by: Admin: 08/09/21 12:27 Dose: 3 mg/hr, 3 mls/hr Documented by: BIRGIT Lactated Ringer's (Ringers, Lactated) 1,000 mls @ 125 mls/hr IV Q8H BING Last Admin: 08/09/21 17:15 Dose: 125 mls/hr Documented by: SLAVA Pantoprazole Sodium 40 mg/ (Sodium Chloride) 10 mls @ 300 mls/hr IV DAILY BING Ondansetron HCl (Ondansetron 4 Mg/2 Ml Sdv) 4 mg IVPUSH Q4H PRN PRN Reason: Nausea/Vomiting Last Admin: 08/09/21 17:32 Dose: 4 mg Documented by: SLAVA Sodium Chloride (Sodium Chloride 0.9% 10 Ml Syringe) 10 ml FLUSH ASDIRECTED PRN PRN Reason: Keep Vein Open Last Admin: 08/09/21 10:25 Dose: 10 ml Documented by: BIRGIT Sodium Chloride (Sodium Chloride 0.9% 2.5 Ml Syringe) 2.5 ml FLUSH ASDIRECTED PRN PRN Reason: Keep Vein Open Last Admin: 08/09/21 10:25 Dose: 2.5 ml Documented by: BIRGIT Assessment/Plan Comment:: New onset atrial fibrillation with RVR: -Admit to ICU, diltiazem drip. -We will transition patient to Cardizem IR followed by ER. Goal HR in the 70s. -Echocardiogram. -Lovenox. Protonix. Zofran. -Lactated Ringer's at 125 mL/h. -Follow-up TSH, lipids, hemoglobin A1c <Kota Hutchins - Last Filed: 08/14/21 16:41> H&P History of Present Illness - General Admit Problem/Dx: Admission Diagnosis/Problem Admission Diagnosis/Problem Atrial fibrillation Exam - Vital Signs Vital Signs: Last Vital Signs Temp 36.2 C 08/11/21 04:00 Pulse 74 08/10/21 20:23 Resp 12 08/11/21 07:00 BP 139/86 08/11/21 07:00 Pulse Ox 94 L 08/11/21 07:00 - Patient Data Result Diagrams: 08/10/21 04:52 08/10/21 04:52 Assessment/Plan Comment:: I performed a history and physical exam of the patient and discussed management with resident. I have reviewed the residents note and agree with documented findings and plan unless otherwise specified in my note.
[2021-08-10] MEDS: Lactated Ringers 1,000 ML IV SCH ×3 (00:47→17:07)
[2021-08-10 06:43] LABS: BLOOD UREA NITROGEN,BUN 8 mg/dL (7.0-18.0); CARBON DIOXIDE,CO2 26.5 mmol/L (21.0-32.0); CHLORIDE,CL 104 mmol/L (98-107); GLUCOSE RANDOM 111 mg/dL (74-106); SODIUM,NA 142 mmol/L (136-148)
[2021-08-10] MEDS ORDERED: Pantoprazole 40 MG in Sodium Chloride 0.9% 10 ML IV SCH (09:00)
[2021-08-10] MEDS ORDERED: Pantoprazole 40 MG Vial IV SCH (09:00)
[2021-08-10] MEDS: Enoxaparin 40 MG/0.4 ML Syringe SUBCUT SCH (16:47)
--- NOTE | 2021-08-10 19:06 | PCM.PN ---
- General Info Date of Service: 08/10/21 - Review of Systems Systems Review Comment:: denies any chest pain or palpitations - Patient Data Vitals - Most Recent: Last Vital Signs Temp 36.7 C 08/10/21 18:00 Pulse 139 H 08/09/21 14:25 Resp 18 08/10/21 18:47 BP 125/89 08/10/21 18:47 Pulse Ox 94 L 08/10/21 18:47 Weight - Most Recent: 120.596 kg I&O - Last 24 Hours: Intake & Output 08/10/21 08/10/21 08/10/21 06:59 14:59 22:59 Intake Total 750 344 8940 Output Total 1450 3500 Balance -850 400 20 Lab Results Last 24 Hours: Laboratory Results - last 24 hr 08/10/21 08/10/21 Range/Units 04:52 04:52 WBC 7.64 (4.0-11.0) K/uL RBC 5.22 (4.50-5.90) M/uL Hgb 17.1 H (13.0-17.0) g/dL Hct 48.3 (38.0-50.0) % MCV 92.5 (80.0-98.0) fL MCH 32.8 H (27.0-32.0) pg MCHC 35.4 (31.0-37.0) g/dL RDW Std Deviation 45.0 (28.0-62.0) fl RDW Coeff of Kevin 13 (11.0-15.0) % Plt Count 191 (150-400) K/uL MPV 10.20 (7.40-12.00) fL Neut % (Auto) 62.5 (48.0-80.0) % Lymph % (Auto) 25.7 (16.0-40.0) % [place] % (Auto) 8.8 (0.0-15.0) % Eos % (Auto) 2.5 (0.0-7.0) % Baso % (Auto) 0.5 (0.0-1.5) % Neut # (Auto) 4.8 (1.4-5.7) K/uL Lymph # (Auto) 2.0 (0.6-2.4) K/uL [place] # (Auto) 0.7 (0.0-0.8) K/uL Eos # (Auto) 0.2 (0.0-0.7) K/uL Baso # (Auto) 0.0 (0.0-0.1) K/uL Nucleated RBC % 0.0 /100WBC Nucleated RBCs # 0 K/uL Sodium 142 (136-148) mmol/L Potassium 4.0 (3.5-5.1) mmol/L Chloride 104 (98-107) mmol/L Carbon Dioxide 26.5 (21.0-32.0) mmol/L BUN 8 (7.0-18.0) mg/dL Creatinine 1.0 (0.8-1.3) mg/dL Est Cr Clr Drug Dosing 107.36 mL/min Estimated GFR (MDRD) > 60.0 ml/min Glucose 111 H (74-106) mg/dL Calcium 8.5 (8.5-10.1) mg/dL Phosphorus 3.3 (2.6-4.7) mg/dL Magnesium 1.8 (1.8-2.4) mg/dL Med Orders - Current: Current Medications Aspirin (Aspirin 81 Mg Tab.Chew) 81 mg PO BEDTIME BING Enoxaparin Sodium (Enoxaparin 40 Mg/0.4 Ml Syringe) 40 mg SUBCUT Q24H [facility] Last Admin: 08/10/21 16:47 Dose: 40 mg Documented by: Lactated Ringer's (Ringers, Lactated) 1,000 mls @ 125 mls/hr IV Q8H [facility] Last Admin: 08/10/21 17:07 Dose: 125 mls/hr Documented by: Pantoprazole Sodium 40 mg/ (Sodium Chloride) 10 mls @ 300 mls/hr IV DAILY [facility] Last Admin: 08/10/21 09:34 Dose: 300 mls/hr Documented by: Diltiazem HCl 100 mg/ Sodium (Chloride) 100 mls @ 5 mls/hr IV NOW [facility]; Protocol Last Admin: 08/10/21 04:52 Dose: 5 mg/hr, 5 mls/hr Documented by: Metoprolol Tartrate (Metoprolol Tartrate 50 Mg Tab) 50 mg PO Q12H BING Ondansetron HCl (Ondansetron 4 Mg/2 Ml Sdv) 4 mg IVPUSH Q4H PRN PRN Reason: Nausea/Vomiting Last Admin: 08/09/21 17:32 Dose: 4 mg Documented by: Sodium Chloride (Sodium Chloride 0.9% 10 Ml Syringe) 10 ml FLUSH ASDIRECTED PRN PRN Reason: Keep Vein Open Last Admin: 08/09/21 10:25 Dose: 10 ml Documented by: Sodium Chloride (Sodium Chloride 0.9% 2.5 Ml Syringe) 2.5 ml FLUSH ASDIRECTED PRN PRN Reason: Keep Vein Open Last Admin: 08/09/21 10:25 Dose: 2.5 ml Documented by: Discontinued Medications Aspirin (Aspirin 81 Mg Tab.Chew) 324 mg PO ONETIME ONE Stop: 08/09/21 10:00 Last Admin: 08/09/21 10:12 Dose: 324 mg Documented by: Diltiazem HCl (Diltiazem 25 Mg/5 Ml Sdv) 10 mg IVPUSH ONETIME ONE Stop: 08/09/21 10:12 Last Admin: 08/09/21 10:21 Dose: 10 mg Documented by: Diltiazem HCl (Diltiazem 120 Mg Cap.Cd) 120 mg PO ONETIME ONE Stop: 08/09/21 11:16 Last Admin: 08/09/21 12:04 Dose: Not Given Documented by: Diltiazem HCl (Diltiazem 25 Mg/5 Ml Sdv) 10 mg IVPUSH ONETIME ONE Stop: 08/09/21 11:30 Last Admin: 08/09/21 11:46 Dose: 10 mg Documented by: Sodium Chloride (Normal Saline) 1,000 mls @ 999 mls/hr IV STAT ONE Stop: 08/09/21 10:51 Last Admin: 08/09/21 10:11 Dose: 999 mls/hr Documented by: Sodium Chloride (Normal Saline) 1,000 mls @ 125 mls/hr IV STAT ONE Stop: 08/09/21 19:28 Last Admin: 08/09/21 11:46 Dose: 125 mls/hr Documented by: Diltiazem HCl 100 mg/ Sodium (Chloride) 100 mls @ 3 mls/hr IV NOW BING; Protocol Last Titration: 08/10/21 04:52 Dose: 0 mg/hr, 0 mls/hr Documented by: Lactated Ringer's (Ringers, Lactated) 1,000 mls @ 999 mls/hr IV BOLUS ONE Stop: 08/09/21 16:30 Last Admin: 08/09/21 16:00 Dose: 999 mls/hr Documented by: Ondansetron HCl (Ondansetron 4 Mg/2 Ml Sdv) 4 mg IVPUSH ONETIME ONE Stop: 08/09/21 11:08 Last Admin: 08/09/21 11:10 Dose: 4 mg Documented by: - Exam General: Alert, Oriented Lungs: Clear to Auscultation, Normal Respiratory Effort Cardiovascular: Regular Rate, Regular Rhythm GI/Abdominal Exam: Soft, Non-Tender, No Distention Extremities: Non-Tender, No Pedal Edema Skin: Warm, Dry, Intact Neurological: No New Focal Deficit - Patient Data Lab Results Last 24 hrs: Laboratory Results - last 24 hr 08/10/21 08/10/21 Range/Units 04:52 04:52 WBC 7.64 (4.0-11.0) K/uL RBC 5.22 (4.50-5.90) M/uL Hgb 17.1 H (13.0-17.0) g/dL Hct 48.3 (38.0-50.0) % MCV 92.5 (80.0-98.0) fL MCH 32.8 H (27.0-32.0) pg MCHC 35.4 (31.0-37.0) g/dL RDW Std Deviation 45.0 (28.0-62.0) fl RDW Coeff of Kevin 13 (11.0-15.0) % Plt Count 191 (150-400) K/uL MPV 10.20 (7.40-12.00) fL Neut % (Auto) 62.5 (48.0-80.0) % Lymph % (Auto) 25.7 (16.0-40.0) % [place] % (Auto) 8.8 (0.0-15.0) % Eos % (Auto) 2.5 (0.0-7.0) % Baso % (Auto) 0.5 (0.0-1.5) % Neut # (Auto) 4.8 (1.4-5.7) K/uL Lymph # (Auto) 2.0 (0.6-2.4) K/uL [place] # (Auto) 0.7 (0.0-0.8) K/uL Eos # (Auto) 0.2 (0.0-0.7) K/uL Baso # (Auto) 0.0 (0.0-0.1) K/uL Nucleated RBC % 0.0 /100WBC Nucleated RBCs # 0 K/uL Sodium 142 (136-148) mmol/L Potassium 4.0 (3.5-5.1) mmol/L Chloride 104 (98-107) mmol/L Carbon Dioxide 26.5 (21.0-32.0) mmol/L BUN 8 (7.0-18.0) mg/dL Creatinine 1.0 (0.8-1.3) mg/dL Est Cr Clr Drug Dosing 107.36 mL/min Estimated GFR (MDRD) > 60.0 ml/min Glucose 111 H (74-106) mg/dL Calcium 8.5 (8.5-10.1) mg/dL Phosphorus 3.3 (2.6-4.7) mg/dL Magnesium 1.8 (1.8-2.4) mg/dL Result Diagrams: 08/10/21 04:52 08/10/21 04:52 Sepsis Event Note - Evaluation Sepsis Screening Result: No Definite Risk - Focused Exam Vital Signs: Vital Signs Temp Temp Resp BP Pulse Ox Pulse Ox 08/10/21 18:47 18 125/89 94 L 08/10/21 18:00 36.7 C 16 130/84 96 08/10/21 16:53 36.7 C 17 122/91 H 93 L 08/10/21 16:00 36.7 C 17 117/74 93 L 08/10/21 15:27 96 08/10/21 15:00 36.7 C 12 128/92 H 95 08/10/21 14:00 36.7 C 14 117/83 93 L 08/10/21 13:00 36.7 C 19 126/88 94 L 08/10/21 12:00 36.7 C 17 131/89 95 08/10/21 11:00 14 126/84 94 L 08/10/21 10:00 17 121/86 95 08/10/21 09:00 36.3 C 13 129/90 94 L 08/10/21 08:00 36.3 C 15 135/94 H 96 - Problem List & Annotations (1) Atrial fibrillation with RVR SNOMED Code(s): 638294526192373 Code(s): I48.91 - UNSPECIFIED ATRIAL FIBRILLATION Status: Acute Current Visit: Yes - Problem List Review Problem List Initiated/Reviewed/Updated: Yes - My Orders Last 24 Hours: My Active Orders 08/10/21 19:15 Metoprolol Tartrate [Lopressor] 50 mg PO Q12H 08/10/21 21:00 Aspirin 81 mg PO BEDTIME - Plan Plan:: New onset atrial fibrillation with RVR: -will place on oral metoprolol and wean off diltiazem drip. Discussed stroke risk. CHADVASc score is 1 and he has elected to start aspirin.
[2021-08-10] MEDS ORDERED: Metoprolol Tartrate 50 MG Tab PO SCH (21:00)
[2021-08-10] MEDS ORDERED: Aspirin 81 MG Tab.Chew PO SCH (21:00)
[2021-08-11] MEDS: Lactated Ringers 1,000 ML IV SCH (02:04)
--- NOTE | 2021-08-11 07:33 | PCM.DCSUM1 ---
Discharge Summary - Discharge Data Discharge Date: 08/11/21 Discharge Disposition: Home, Self-Care 01 Condition: Good - Referral to Home Health Primary Care Physician: PCP None - Discharge Diagnosis/Problem(s) (1) Atrial fibrillation with RVR SNOMED Code(s): 257171715207498 ICD Code: I48.91 - UNSPECIFIED ATRIAL FIBRILLATION Status: Acute Current Visit: Yes - Patient Summary/Data Hospital Course: 45-year-old male with history of untreated hypertension who was admitted for new onset atrial fibrillation with rapid ventricular rate. He presented with palpitations. He was noted to be in atrial fibrillatio with heart rate in the 140s-160s. ER course: Patient presented with tachycardia, no acute distress. Heart rate 140s to 160s. EKG shows atrial fibrillation with RVR, rate of 166. [id number] Score: 1 point (untreated HTN). Physical exam unremarkable. WBC 6.93. Hgb 17.3. Platelet count 173. Sodium 138. Potassium 4.2. Chloride 100. Bicarbonate 27.4. BUN 11. Creatinine 1.0. Glucose 133. Troponin negative x2. TSH 1.45. SARS-CoV-2 negative. Chest x-ray is unremarkable. He was treated with IV diltiazem push follow by diltiazem drip. He was started on oral metorpolol and titrated off the diltazem dirp. This monring he is rate controlled in normal sinus rhythm but does on occasion switch to atrial fibrillation which remains rate controlled. He is requesting discharge home. AFter discussing risk I initially recommended aspirin but patient prefers stronger stroke prevention and wants to start anticoagulation. He was discharged on Metoprolol 100mg daily and Eliquis. He is to follow up with his primary care provider regarding results of echocardiogram. - Patient Instructions Diet: Regular Diet as Tolerated Activity: As Tolerated Other/Special Instructions: You were admitted for atrial fibrillation that cause a fast heart rate. We treated you with rate controlling medicaitons. Your atrial fibrillation is paradoxical meaning you alternate between a normal and abnormal rythym. When at home you should take metoprolol succinate to control your heart rate when it goes into atrial fibrillation. Metoprolol can cause low blood pressure, dizziness, and fatigue. You also will have a prescription for Eliquis to prevent strokes that can occurer due to atrial fibrillaiton. Eilquis can increase your risk of bleeding. Please follow up with your primary care provider in the next two weeks to ensure you are tolerating the new medicaitons and atiral fibrillation remains well controlled. You should also follow up to get results of the echocardiogram and consider cardiology consultation. Please check your heart rate and blood pressure daily and bring your readings to your next doctor appointment. - Discharge Plan Prescriptions/Med Rec: Apixaban [Eliquis] 5 mg PO BID #60 tablet Metoprolol Succinate 100 mg PO DAILY #30 tab.er.24h Home Medications: Home Meds Apixaban [Eliquis] 5 mg PO BID #60 tablet 08/11/21 [Rx] Metoprolol Succinate 100 mg PO DAILY #30 tab.er.24h 08/11/21 [Rx] Patient Handouts: Hypertension, Adult, [id number], Managing Your Hypertension, Atrial Fibrillation, [id number] Referrals: PCP,None [Primary Care Provider] - - Discharge Summary/Plan Comment DC Time >30 min.: No Total # of Minutes for Discharge Time: 20 - Patient Data Vitals - Most Recent: Last Vital Signs Temp 36.2 C 08/11/21 04:00 Pulse 74 08/10/21 20:23 Resp 15 08/11/21 06:00 BP 127/82 08/11/21 06:00 Pulse Ox 95 08/11/21 06:00 Weight - Most Recent: 121.123 kg I&O - Last 24 hours: Intake & Output 08/10/21 08/11/21 08/11/21 22:59 06:59 14:59 Intake Total 3520 350 Output Total 3500 1450 Balance 20 -1100 Lab Results - Last 24 hrs: Laboratory Results - last 24 hr 08/10/21 Range/Units 04:52 WBC 7.64 (4.0-11.0) K/uL RBC 5.22 (4.50-5.90) M/uL Hgb 17.1 H (13.0-17.0) g/dL Hct 48.3 (38.0-50.0) % MCV 92.5 (80.0-98.0) fL MCH 32.8 H (27.0-32.0) pg MCHC 35.4 (31.0-37.0) g/dL RDW Std Deviation 45.0 (28.0-62.0) fl RDW Coeff of Kevin 13 (11.0-15.0) % Plt Count 191 (150-400) K/uL MPV 10.20 (7.40-12.00) fL Neut % (Auto) 62.5 (48.0-80.0) % Lymph % (Auto) 25.7 (16.0-40.0) % Pickett % (Auto) 8.8 (0.0-15.0) % Eos % (Auto) 2.5 (0.0-7.0) % Baso % (Auto) 0.5 (0.0-1.5) % Neut # (Auto) 4.8 (1.4-5.7) K/uL Lymph # (Auto) 2.0 (0.6-2.4) K/uL Pickett # (Auto) 0.7 (0.0-0.8) K/uL Eos # (Auto) 0.2 (0.0-0.7) K/uL Baso # (Auto) 0.0 (0.0-0.1) K/uL Nucleated RBC % 0.0 /100WBC Nucleated RBCs # 0 K/uL Med Orders - Current: Current Medications Aspirin (Aspirin 81 Mg Tab.Chew) 81 mg PO BEDTIME [facility] Last Admin: 08/10/21 20:23 Dose: 81 mg Documented by: Enoxaparin Sodium (Enoxaparin 40 Mg/0.4 Ml Syringe) 40 mg SUBCUT Q24H [facility] Last Admin: 08/10/21 16:47 Dose: 40 mg Documented by: Lactated Ringer's (Ringers, Lactated) 1,000 mls @ 125 mls/hr IV Q8H [facility] Last Admin: 08/11/21 02:04 Dose: Not Given Documented by: Pantoprazole Sodium 40 mg/ (Sodium Chloride) 10 mls @ 300 mls/hr IV DAILY [facility] Last Admin: 08/10/21 09:34 Dose: 300 mls/hr Documented by: Diltiazem HCl 100 mg/ Sodium (Chloride) 100 mls @ 5 mls/hr IV NOW [facility]; Protocol Last Titration: 08/10/21 21:36 Dose: 0 mg/hr, 0 mls/hr Documented by: Metoprolol Succinate (Metoprolol Succinate 100 Mg Tab.Er) 100 mg PO DAILY BING Ondansetron HCl (Ondansetron 4 Mg/2 Ml Sdv) 4 mg IVPUSH Q4H PRN PRN Reason: Nausea/Vomiting Last Admin: 08/09/21 17:32 Dose: 4 mg Documented by: Sodium Chloride (Sodium Chloride 0.9% 10 Ml Syringe) 10 ml FLUSH ASDIRECTED PRN PRN Reason: Keep Vein Open Last Admin: 08/09/21 10:25 Dose: 10 ml Documented by: Sodium Chloride (Sodium Chloride 0.9% 2.5 Ml Syringe) 2.5 ml FLUSH ASDIRECTED PRN PRN Reason: Keep Vein Open Last Admin: 08/09/21 10:25 Dose: 2.5 ml Documented by: Discontinued Medications Aspirin (Aspirin 81 Mg Tab.Chew) 324 mg PO ONETIME ONE Stop: 08/09/21 10:00 Last Admin: 08/09/21 10:12 Dose: 324 mg Documented by: Diltiazem HCl (Diltiazem 25 Mg/5 Ml Sdv) 10 mg IVPUSH ONETIME ONE Stop: 08/09/21 10:12 Last Admin: 08/09/21 10:21 Dose: 10 mg Documented by: Diltiazem HCl (Diltiazem 120 Mg Cap.Cd) 120 mg PO ONETIME ONE Stop: 08/09/21 11:16 Last Admin: 08/09/21 12:04 Dose: Not Given Documented by: Diltiazem HCl (Diltiazem 25 Mg/5 Ml Sdv) 10 mg IVPUSH ONETIME ONE Stop: 08/09/21 11:30 Last Admin: 08/09/21 11:46 Dose: 10 mg Documented by: Sodium Chloride (Normal Saline) 1,000 mls @ 999 mls/hr IV STAT ONE Stop: 08/09/21 10:51 Last Admin: 08/09/21 10:11 Dose: 999 mls/hr Documented by: Sodium Chloride (Normal Saline) 1,000 mls @ 125 mls/hr IV STAT ONE Stop: 08/09/21 19:28 Last Admin: 08/09/21 11:46 Dose: 125 mls/hr Documented by: Diltiazem HCl 100 mg/ Sodium (Chloride) 100 mls @ 3 mls/hr IV NOW BING; Protocol Last Titration: 08/10/21 04:52 Dose: 0 mg/hr, 0 mls/hr Documented by: Lactated Ringer's (Ringers, Lactated) 1,000 mls @ 999 mls/hr IV BOLUS ONE Stop: 08/09/21 16:30 Last Admin: 08/09/21 16:00 Dose: 999 mls/hr Documented by: Metoprolol Tartrate (Metoprolol Tartrate 50 Mg Tab) 50 mg PO Q12HR BING Last Admin: 08/10/21 20:23 Dose: 50 mg Documented by: Ondansetron HCl (Ondansetron 4 Mg/2 Ml Sdv) 4 mg IVPUSH ONETIME ONE Stop: 08/09/21 11:08 Last Admin: 08/09/21 11:10 Dose: 4 mg Documented by:
[2021-08-11] MEDS ORDERED: Metoprolol Succinate 100 MG Tab.ER PO SCH (09:00)
--- NOTE | 2021-08-14 14:04 | ECHO ---
EXAM DATE: 08/09/21 PATIENT'S AGE: 45 The ECHO report has been scanned into [email or web address] and can be seen in this patient's EMR (Electronic Medical Record) under the REPORTS section. The report has also been scanned into PACS. AMBER
== END 2021-08-11 08:00 | disposition home or self-care (01) | DRG 201 ==
LOC: MW.ED 08:13 → MW.ICU 15:05
PROVIDERS: ADMIT Student in an Organized Health Care Education/Training Program; ATTEND Student in an Organized Health Care Education/Training Program
DX: I48.91 Unspecified atrial fibrillation (principal); I10 Essential (primary) hypertension; Z20.822 Contact with and (suspected) exposure to COVID-19
CPT/HCPCS: 36415; 71045; 71045-26; 80048; 80053; 83735; 84100; 84443; 84484; 85025; 93005; 93306; 96374; 96375; 96376; 99285-25; A9270-GY; C9113; J1650; J2405; J3490; J7030; J7120; U0002

== ENCOUNTER 2025-02-25 06:12 | Day surgery (SDC) | payer OTHER ==
[2025-02-25] MEDS: Lactated Ringers 1,000 ML IV SCH (06:43)
[2025-02-25] MEDS ORDERED: Lidocaine 2% 5 ML SDV ONE (07:17)
[2025-02-25] MEDS ORDERED: Propofol 200 MG/20 ML SDV ONE (07:17)
[2025-02-25] MEDS ORDERED: Lactated Ringers 1,000 ML IV SCH (08:15)
== END 2025-02-25 08:50 | disposition home or self-care (01) ==
LOC: MW.SDS 06:12
PROVIDERS: ATTEND Surgery
DX: Z12.11 Encounter for screening for malignant neoplasm of colon (principal); I10 Essential (primary) hypertension; E78.00 Pure hypercholesterolemia, unspecified; E66.9 Obesity, unspecified; I48.91 Unspecified atrial fibrillation; Z79.01 Long term (current) use of anticoagulants; Z79.899 Other long term (current) drug therapy
CPT/HCPCS: 45378; J2003; J2704; J7120; 00812